=== PATIENT | female | born 1970 | race Caucasian/White ===

== ENCOUNTER → 2017-09-21 | Outpatient (CLI) | payer BC ==
[2014-11-03 19:23] VITALS: BP 158/84
[~2017-09-21] MED LIST: CITA20SO PO; ESTR1TAB17 PO; LEVO50TA5 PO; TIZA4TAB8 PO
--- NOTE | 2017-09-21 14:08 | RAD ---
DATE: 09/21/2017 EXAM: MAMMO FERNANDO SCREENING BILATERAL HISTORY: Screening Mammogram COMPARISON: Screening mammogram 07/11/2016, 04/24/2015 This study was interpreted with the benefit of Computerized Aided Detection (CAD). The breast parenchyma is heterogeneously dense, which could reduce sensitivity of mammography. Breast parenchyma level C. FINDINGS: Bilateral digital 2-D and 3-D tomosynthesis CC and MLO views. Slight increase in global asymmetry in the lateral right breast. No suspicious mass, calcification or architectural distortion in the left breast. Impression: Slight increase in global asymmetry in the lateral right breast. Spot compression CC tomosynthesis views are recommended for further evaluation, and ultrasound if needed. BI-RADS CATEGORY: 0 INCOMPLETE: NEEDS ADDITIONAL IMAGING EVALUATION AND/OR PRIOR MAMMOGRAMS FOR COMPARISON. RECOMMENDED FOLLOW-UP: ADD ADDITIONAL IMAGING PQRS compliance statement: Patient information was entered into a reminder system with a target due date for the next mammogram. Mammography is a sensitive method for finding small breast cancers, but it does not detect them all and is not a substitute for careful clinical examination. A negative mammogram does not negate a clinically suspicious finding and should not result in delay in biopsying a clinically suspicious abnormality. "Our facility is accredited by the [employer] Mammography [employer]."
== END | disposition home or self-care (01) ==
LOC: MAMMO 07:38
PROVIDERS: ATTEND Family Medicine
DX: Z12.31 Encounter for screening mammogram for malignant neoplasm of breast (principal); N64.89 Other specified disorders of breast
CPT/HCPCS: 77063; 77067

== ENCOUNTER → 2017-09-25 | Outpatient (CLI) | payer BC ==
[2014-11-03 19:23] VITALS: BP 158/84
--- NOTE | 2017-09-25 15:00 | RAD ---
DATE: 09/25/2017 EXAM: DIGITAL DIAGNOSTIC RT HISTORY: Suspicious screening study COMPARISON: 09/21/2017 09/10/2015, 04/24/2015 This study was interpreted with the benefit of Computerized Aided Detection (CAD). The breast parenchyma is heterogeneously dense, which could reduce sensitivity of mammography. Breast parenchyma level C. FINDINGS: Spot compression CC and oblique views of the upper outer quadrant of the right breast were obtained. The area of increased density noted in the CC projection on the screening study spreads out on the spot compression view revealing normal fibroglandular type shadows similar to those seen on prior exams. There is no evidence of a breast mass. IMPRESSION: Stable right mammograms without evidence of malignancy. BI-RADS CATEGORY: 1 NEGATIVE RECOMMENDED FOLLOW-UP: 12M 12 MONTH FOLLOW-UP PQRS compliance statement: Patient information was entered into a reminder system with a target due date for the next mammogram. Mammography is a sensitive method for finding small breast cancers, but it does not detect them all and is not a substitute for careful clinical examination. A negative mammogram does not negate a clinically suspicious finding and should not result in delay in biopsying a clinically suspicious abnormality. "Our facility is accredited by the [employer] Mammography [employer]."
== END | disposition home or self-care (01) ==
LOC: MAMMO 14:01
PROVIDERS: ATTEND Family Medicine
DX: R92.8 Other abnormal and inconclusive findings on diagnostic imaging of breast (principal)
CPT/HCPCS: 77065

== ENCOUNTER 2018-04-16 12:37 | Inpatient (IN) | payer BC ==
[~2018-04-16] VITALS: Ht 154.9 cm; Wt 96.2 kg
[2018-04-16 13:19] VITALS: BP 158/90
[2018-04-16] MEDS ORDERED: ONDANSETRON PF 4 MG/2 ML VIAL. IV PRN (13:45)
[2018-04-16] MEDS ORDERED: LORazepam 0.5 MG TABLET PO PRN (13:45)
[2018-04-16] MEDS ORDERED: ACETAMINOPHEN 325 MG TABLET PO PRN (13:45)
[2018-04-16 13:46] LABS: BASO % 1 % (0-3); EOS # 0.3 x10^3/uL (0.0-0.7); EOS % 3 % (0-3); HEMATOCRIT 47.4 % (36.0-47.0); HEMOGLOBIN 16.3 g/dL (12.0-15.5); LYMPH # 2.4 x10^3/uL (1.0-4.8); LYMPH % 33 % (24-48); MEAN CORPUSCULAR HEMOGLOBIN 29 pg (25-35); MEAN CORPUSCULAR HGB CONC 34 g/dL (31-37); MEAN CORPUSCULAR VOLUME 86 fL (79-100); MONO # 0.5 x10^3/uL (0.0-1.1); MONO % 7 % (0-9); NEUT # 4.1 x10^3uL (1.8-7.7); NEUT % 56 % (31-73); PLATELET COUNT 181 x10^3/uL (140-400); RED BLOOD COUNT 5.54 x10^6/uL (3.50-5.40); RED CELL DISTRIBUTION WIDTH 14.3 % (11.5-14.5); WHITE BLOOD COUNT 7.4 x10^3/uL (4.0-11.0)
[2018-04-16 13:53] LABS: ALBUMIN 3.7 g/dL (3.4-5.0); ALBUMIN/GLOBULIN RATIO 0.9 (1.0-1.7); CALCIUM 9.1 mg/dL (8.5-10.1); CREATININE 0.6 mg/dL (0.6-1.0); GFR 107.2; POTASSIUM 3.9 mmol/L (3.5-5.1); TOTAL BILIRUBIN 0.4 mg/dL (0.2-1.0); TOTAL PROTEIN 7.6 g/dL (6.4-8.2)
[2018-04-16] MEDS ORDERED: PROCHLORPERAZINE 10 MG/2 ML VIAL. IV PRN (14:00)
[2018-04-16] MEDS ORDERED: MORPHINE SULFATE 2 MG/ML DISP.SYRIN. IV PRN (14:00)
[2018-04-16] MEDS ORDERED: IV 1/2 NORMAL SALINE 1,000 ML IV PRN (14:00)
[2018-04-16] MEDS ORDERED: tiZANidine 4 MG TABLET. PO PRN (14:15)
[2018-04-16] MEDS ORDERED: IOHEXOL 240 MG/ML 50ML VIAL. ONE (14:24)
[2018-04-16] MEDS: PANTOPRAZOLE IV 40 MG VIAL. IVP SCH (14:48)
[2018-04-16] MEDS: IV NORMAL SALINE 1,000ML 1,000 ML IV SCH ×2 (14:49→22:00)
[2018-04-16] MEDS ORDERED: IOHEXOL 300 MG/ML 75 ML VIAL. IV ONE (15:00)
[2018-04-16] MEDS ORDERED: CELE-20 PO (15:43)
[2018-04-16] MEDS ORDERED: RANI150T2 PO (15:43)
[2018-04-16] MEDS ORDERED: LEVO88TA4 PO (15:43)
[2018-04-16] MEDS ORDERED: ONDA4TAB12 PO (15:43)
[2018-04-16] MEDS ORDERED: MECL25TA3 PO (15:43)
[2018-04-16] MEDS ORDERED: ONDANSETRON ODT 4 MG TAB.RAPDIS PO PRN (16:00)
[2018-04-16] MEDS ORDERED: MECLIZINE 12.5 MG TABLET. PO PRN (16:15)
--- NOTE | 2018-04-16 16:41 | RAD ---
CT Abdomen and Pelvis With Intravenous Contrast: History: Severe abdominal pain. Comparison: None. Technique: After administration of oral and intravenous contrast, 75 mL Omnipaque-300, CT of the abdomen and pelvis was performed. Exposure: One or more of the following individualized dose reduction techniques were utilized for this examination: 1. Automated exposure control 2. Adjustment of the mA and/or kV according to patient size 3. Use of iterative reconstruction technique Findings: Liver is unremarkable. Spleen is mildly enlarged measuring 13.5 cm maximum dimension. Pancreas, gallbladder, and bilateral adrenal glands are unremarkable. Bilateral kidneys enhance symmetrically. No bowel obstruction or inflammation is seen. Appendix is without evidence of inflammation. Small fat-containing umbilical hernia is seen. Uterus is absent. Both ovaries were left in place. Right ovary demonstrates 2.6 cm follicle. Left ovary demonstrates 1.4 cm follicle. Appendix appears small and is without evidence of inflammation. No bowel obstruction or inflammation is appreciated. No free air or free fluid is identified in the abdomen or pelvis. Impression: 1. No acute abnormality identified in the abdomen or pelvis. 2. Bilateral ovarian follicles. Status post hysterectomy. 3. Small fat-containing umbilical hernia. 4. Mild splenomegaly. Electronically signed by: Rogerio Ashraf MD (04/16/2018 4:37 PM) [facility]
[2018-04-16 18:41] VITALS: BP 135/82
[2018-04-16] MEDS ORDERED: ASPI1TAB31 PO (19:03)
[2018-04-16] MEDS ORDERED: ASA/APAP/CAFFEINE 250/250/65MG TABLET. PO PRN (19:15)
--- NOTE | 2018-04-16 19:25 | EKG ---
[address] [address] Test Date: 2018-04-16 Test Time: 18:45:14 Pat Name: BELINDA ZAPATA Department: Room: 120 A Gender: F [employer]: : [id number] Requested By: NADIYA YOUNG Order Number: [id number] Reading MD: Castillo Alexander MD Measurements Intervals [place] Rate: 74 P: 143 DC: 148 QRS: 157 QRSD: 88 T: 126 QT: 374 QTc: 416 Interpretive Statements SINUS RHYTHM LIMB LEAD MISPLACEMENT Electronically Signed On 04-19-2018 10:37:53 CDT by Castillo Alexander MD
[2018-04-16] MEDS ORDERED: NON FORMULARY ITEM (Meclizine Hcl 1 TAB) PO SCH (21:00)
[2018-04-16] MEDS: HEPARIN PF for SUB-Q USE 5,000 UNIT/0.5 ML VIAL. SQ SCH (22:02)
[2018-04-16 22:21] VITALS: BP 121/68
[2018-04-16 22:52] LABS: BACTERIA,URINE FEW /HPF (0-FEW); BILIRUBIN,URINE NEG (NEG); CLARITY,URINE CLEAR; COLOR,URINE STRAW; GLUCOSE,URINE NEG (NEG); NITRITE,URINE NEG (NEG); RBC,URINE OCC /HPF (0-2); SQUAMOUS EPITHELIAL CELL,UR MOD /LPF; UROBILINOGEN,URINE 0.2 mg/dL (0.2 mg/dL); WBC,URINE OCC /HPF (0-4)
[2018-04-17] MEDS ORDERED: CONTRAST GIVEN MC PRN (05:00)
[2018-04-17 05:08] VITALS: BP 129/66
[2018-04-17] MEDS ORDERED: IOHEXOL 300 MG/ML 75 ML VIAL. IV ONE (05:15)
[2018-04-17] MEDS: HEPARIN PF for SUB-Q USE 5,000 UNIT/0.5 ML VIAL. SQ SCH (05:20)
[2018-04-17 06:53] LABS: BASO % 1 % (0-3); EOS # 0.3 x10^3/uL (0.0-0.7); EOS % 5 % (0-3); HEMATOCRIT 42.7 % (36.0-47.0); HEMOGLOBIN 14.5 g/dL (12.0-15.5); LYMPH # 2.4 x10^3/uL (1.0-4.8); LYMPH % 37 % (24-48); MEAN CORPUSCULAR HEMOGLOBIN 29 pg (25-35); MEAN CORPUSCULAR HGB CONC 34 g/dL (31-37); MEAN CORPUSCULAR VOLUME 86 fL (79-100); MONO # 0.5 x10^3/uL (0.0-1.1); MONO % 8 % (0-9); NEUT # 3.2 x10^3uL (1.8-7.7); NEUT % 49 % (31-73); PLATELET COUNT 152 x10^3/uL (140-400); RED BLOOD COUNT 4.96 x10^6/uL (3.50-5.40); RED CELL DISTRIBUTION WIDTH 14.1 % (11.5-14.5); WHITE BLOOD COUNT 6.6 x10^3/uL (4.0-11.0)
[2018-04-17] MEDS ORDERED: LEVOTHYROXINE 50 MCG TABLET PO SCH (07:00)
[2018-04-17] MEDS ORDERED: LEVOTHYROXINE 88 MCG TABLET PO SCH (07:00)
[2018-04-17 07:11] LABS: CALCIUM 8.6 mg/dL (8.5-10.1); CREATININE 0.5 mg/dL (0.6-1.0); GFR 132.2
[2018-04-17] MEDS ORDERED: PANTOPRAZOLE IV 40 MG VIAL. IVP SCH (07:30)
--- NOTE | 2018-04-17 08:19 | RAD ---
Indication:Elevated d-dimer TECHNIQUE: CT angiogram of the chest with IV contrast with multiplanar MIP reformats. COMPARISON: None FINDINGS: Suboptimal PE study due to contrast bolus timing. Most of the contrast is in the subclavian vein. There is no central embolus. Evaluation of segmental and subsegmental arteries is limited due to above mentioned limitation. Heart is top normal in size. No pericardial or pleural effusion. Clear neck base. No axillary, mediastinal or hilar adenopathy. Visualized sections through the liver, pancreas, adrenals and kidneys within normal limits. Spleen is mildly enlarged measuring 15 cm in longest dimension. Central airways are patent. Breathing motion artifact is seen in the lungs limiting optimal evaluation. No pneumothorax, focal consolidation or interstitial abnormalities. No suspicious bony lesion. IMPRESSION: 1. Suboptimal PE study due to contrast bolus timing. No large saddle embolus. Evaluation of segmental and subsegmental arteries is limited and hence PE not ruled out. Consider additional modalities such as VQ scan or DVT study. 2. Mild splenomegaly, nonspecific. Electronically signed by: Howard Burrell DO (04/17/2018 8:15 AM) [facility]
[2018-04-17] MEDS ORDERED: CELECOXIB 100 MG CAPSULE PO SCH (09:00)
[2018-04-17] MEDS ORDERED: FAMOTIDINE 20 MG TABLET PO SCH (09:00)
[2018-04-17] MEDS: PANTOPRAZOLE IV 40 MG VIAL. IVP SCH (09:42)
[2018-04-17 10:19] VITALS: BP 142/83
--- NOTE | 2018-04-17 12:14 | RAD ---
Indication:RUQ/EPIGASTRIC PAIN TECHNIQUE: Grayscale, color Doppler and spectral waveform is of the abdomen obtained. COMPARISON:04/16/2018 CT FINDINGS: Visualized pancreas is within normal limits. No gallstones, pericholecystic fluid or gallbladder wall thickening. IVC is patent. The liver measures 18 cm in longest dimension and is mildly increased in size with diffuse increased echogenicity and decreased through transmission. Main portal vein is patent. CBD measures 4 mm in diameter and is within normal limits. Right kidney measures 13 cm in longest dimension without hydronephrosis. IMPRESSION: 1. Mild hepatomegaly with hepatic steatosis. 2. No cholelithiasis or sonographic evidence of acute cholecystitis. Electronically signed by: Howard Burrell DO (04/17/2018 12:10 PM) [facility]
--- NOTE | 2018-04-17 14:18 | RAD ---
Indication: Positive d-dimer. No respiratory issues. No history of DVT or PE. TECHNIQUE: Nuclear medicine VQ scan with ventilation scan performed with 8 mCi of xenon-133 and perfusion scan performed with 5.4 mCi of technetium 99 M MAA. Unable to finish ventilation scan due to panic attack. COMPARISON: CT angiogram from the same day FINDINGS: The complete ventilation scan was not performed due to panic attack. The perfusion scan demonstrates homogeneous distribution of the perfusion agent without wedge-shaped areas of photopenia. IMPRESSION: 1. Nondiagnostic ventilation scan due to panic attack during the exam. 2. The perfusion scan however demonstrates homogenous distribution of the perfusion agent suggesting low probability of PE. Electronically signed by: Howard Burrell DO (04/17/2018 2:14 PM) [facility]
[2018-04-17 16:06] VITALS: BP 134/88
[2018-04-19 19:08] LABS: ANA INTERP Negative (.)
== END 2018-04-17 17:30 | disposition home or self-care (01) | DRG 392 ==
LOC: 1 SOUTH 12:37
PROVIDERS: ADMIT Family Medicine; ATTEND Family Medicine
DX: R10.13 Epigastric pain (principal); E03.9 Hypothyroidism, unspecified; M19.90 Unspecified osteoarthritis, unspecified site; E66.9 Obesity, unspecified; D50.9 Iron deficiency anemia, unspecified; R94.5 Abnormal results of liver function studies; R11.0 Nausea; Z90.710 Acquired absence of both cervix and uterus; Z90.49 Acquired absence of other specified parts of digestive tract; Z88.8 Allergy status to other drugs, medicaments and biological substances; Z79.899 Other long term (current) drug therapy; K76.0 Fatty (change of) liver, not elsewhere classified
CPT/HCPCS: 36415; 71275; 74177; 76705; 78582; 80048; 80053; 81001; 82150; 82550; 83540; 83550; 83605; 83690; 84484; 85025; 85379; 85730; 86038; 86705; 86709; 86803; 87086; 87340; 93005; 96374; A9540; A9558; C9113; J2405; J3010; Q9967; J7030

== ENCOUNTER → 2018-04-21 | Outpatient (CLI) | payer BC ==
[2018-04-17 16:06] VITALS: BP 134/88
[~2018-04-21] MED LIST changes: +ASPI1TAB31 PO; +CELE-20 PO; +LEVO88TA4 PO; +MECL25TA3 PO; +ONDA4TAB12 PO; +RANI150T2 PO; +SINCALIDE 1.95 MCG in IV NORMAL SALINE 50ML 30 ML IV ONE
--- NOTE | 2018-04-21 15:19 | RAD ---
Radionuclide hepatobiliary scan with gallbladder ejection fraction, 04/21/2018: HISTORY: Epigastric pain Following IV injection of 5.5 mCi of technetium 99m Choletec there was prompt uptake of the radionuclide from the blood stream by the liver. Activity is present in the bile ducts, gallbladder and small bowel at 10 minutes. Additional imaging was then performed following IV injection of 1.9 mcg of cholecystokinin. The gallbladder ejection fraction was calculated at 9 percent. 30-50 percent is considered to be the borderline low range. IMPRESSION: 1. No evidence of cystic duct or common bile duct obstruction. 2. Low gallbladder ejection fraction of 9 percent. Electronically signed by: Lexx Prasad MD (04/21/2018 3:16 PM) [facility]
== END | disposition home or self-care (01) ==
LOC: NM 11:20
PROVIDERS: ATTEND Family Medicine
DX: R94.5 Abnormal results of liver function studies (principal); E78.00 Pure hypercholesterolemia, unspecified; D50.9 Iron deficiency anemia, unspecified; E03.9 Hypothyroidism, unspecified; Z90.49 Acquired absence of other specified parts of digestive tract; Z90.710 Acquired absence of both cervix and uterus
CPT/HCPCS: 78226; 96374; 96375; A9537; J2805